=== PATIENT | male | born 2000 | race Caucasian/White ===

== ENCOUNTER 2020-04-02 11:30 | Inpatient (IN) ==
[2020-04-02] MEDS ORDERED: IOPAMIDOL 100 ML BOTTLE IV ONE (11:31)
[2020-04-02] MEDS ORDERED: ONDANSETRON 4 MG/2 ML VIAL IV ONE (11:43)
[2020-04-02] MEDS ORDERED: LORazepam 2 MG/ML VIAL IV ONE (12:00)
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
--- NOTE | 2020-04-02 12:49 | Cat Scan Report ---
CLINICAL INFORMATION: Trauma COMPARISON: None. TECHNIQUE: 0.625 mm helical slices were obtained from the mid T12 through mid S2 vertebral bodies. Following reconstruction, 2.5 mm coronal, sagittal, and axial reformations (angle to the disc spaces) were processed. Exam was reviewed at bone and soft tissue windows.The exam was performed using radiation dose optimization techniques including, but not limited to, automated exposure control, adjustment of the mA and/or kV according to patient size and use of iterative reconstruction technique. FINDINGS: Sagittal and coronal reformatted images show the lumbar spine to be anatomically aligned. There is no fracture or other osseous normality. All discs maintain normal height - no evidence of extrusion or protrusion. The central canal, lateral recess and IV foramen normal width at each level. The liver is incompletely imaged, but is moderately enlarged with severe diffuse fatty change. IMPRESSION: 1. Lumbar spine is unremarkable. 2. Moderate hepatomegaly with severe diffuse fatty infiltration compatible with diffuse hepatopathy such as alcoholic hepatitis Interpreted and Authenticated by: Blayne Macario 04/02/20
--- NOTE | 2020-04-02 12:58 | Cat Scan Report ---
CLINICAL INFORMATION: Trauma COMPARISON: None. TECHNIQUE: 2.5 mm helical slices were obtained from the skull base through the superior T2 end plate. Following reconstruction, 2.5 mm sagittal, coronal and axial reformations , with and without disc space angling, were processed. The exam was reviewed at bone and soft tissue windows. The exam was performed using radiation dose optimization techniques including, but not limited to, automated exposure control, adjustment of the mA and/or kV according to patient size and use of iterative reconstruction technique. FINDINGS: Sagittal and coronal reformatted images show the cervical spine to be anatomically aligned. There is no fracture or other osseous abnormality. The cervical cord is normal in contour and caliber without focal lesion. The soft tissues are normal. All disc levels are unremarkable - no evidence of protrusion. Central canal, lateral recesses and IV foramen are normal width at each level. IMPRESSION: Normal exam. Interpreted and Authenticated by: Blayne Macario 04/02/20
--- NOTE | 2020-04-02 13:05 | Cat Scan Report ---
CLINICAL INFORMATION: Trauma COMPARISON: None. TECHNIQUE: 2.5 mm helical slices were obtained from the mid C7 through the mid L1 vertebral bodies. Following reconstruction, 2.5 mm sagittal, coronal and axial reformations , with and without disc space angling, were processed. The exam was reviewed at bone and soft tissue windows. The exam was performed using radiation dose optimization techniques including, but not limited to, automated exposure control, adjustment of the mA and/or kV according to patient size and use of iterative reconstruction technique. FINDINGS: Mild T3, T4-T5 and moderate T6 and T7 compression fractures appreciated. These accentuate the normal kyphotic curve of the thoracic. The fractures are entirely confined to vertebral bodies - no pedicle or posterior element extension. Alignment is anatomic. There is no paraspinous edema. These may be a chronic right acute - please correlate with point tenderness over these regions.. The thoracic cord is normal in contour and caliber without focal lesion. The soft tissues are normal. All disc levels are unremarkable - no evidence of protrusion. Central canal, lateral recesses and IV foramen are normal width at each level. IMPRESSION: Mild T3-T5 and moderate T6 and T7 compression fractures of indeterminate chronicity. History of recent trauma is acknowledged. If there is acute pain in the upper and midthoracic spine, these fractures are likely acute. Since the fractures are entirely confined to the vertebral bodies, they should be considered stable and are typically treated nonsurgically. Interpreted and Authenticated by: Blayne Macario 04/02/20
[2020-04-02 13:18] LABS: Basophils # (Auto) 0.05 K/mcL (0.00-0.20); Basophils % (Auto) 0.5 % (0.0-2.0); Eosinophils # (Auto) 0.01 K/mcL (0.00-0.70); Eosinophils % (Auto) 0.1 % (0.0-7.0); Hematocrit 43.1 % (41.0-55.0); Hemoglobin 14.7 g/dL (13.5-16.5); Lymphocytes # (Auto) 0.52 K/mcL (1.50-4.80); Lymphocytes % (Auto) 5.6 % (15.0-49.0); Mean Cell Volume 99.5 fL (80.0-100.0); Mean Corpuscular HGB Conc 34.1 g/dL (31.0-36.0); Mean Platelet Volume 10.2 fL (7.4-10.4); Monocytes # (Auto) 0.58 K/mcL (0.10-0.90); Monocytes % (Auto) 6.3 % (1.0-12.0); Neutrophils % (Auto) 87.5 % (38.0-78.0); Platelet Count 164 K/mcL (140-440); RBC 4.33 M/mcL (4.50-5.90); Red Cell Distribution Width 12.1 % (11.5-14.5); WBC 9.3 K/mcL (4.5-11.0)
--- NOTE | 2020-04-02 13:33 | Cat Scan Report ---
CLINICAL INFORMATION: Trauma - fall possible seizure COMPARISON: None. TECHNIQUE: 2.5 mm helical slices were obtained in the skull base to vertex. Following reconstruction, axial reformatted images were reviewed at bone and parenchymal windows.Following injection of 50 cc of [id number]-[id number], 2.5 mm helical slices were repeated from the skull base through the vertex. The exam was performed using radiation dose optimization techniques including, but not limited to, automated exposure control, adjustment of the mA and/or kV according to patient size and use of iterative reconstruction technique. FINDINGS: The ventricles, sulci, fissures, and cisterns are normal in size and configuration. No extra-axial fluid collections are identified. The cerebrum, brainstem and cerebellum are unremarkable. There is no evidence of hemorrhage, mass effect, or edema or abnormal enhancement. Bone windows show no osseous abnormality. IMPRESSION: Normal head CT with and without contrast Interpreted and Authenticated by: Blayne Macario 04/02/20
[2020-04-02 13:34] LABS: Alcohol, Blood < 10.0 mg/dL
[2020-04-02 13:39] LABS: POC Blood Urea Nitrogen 13 mg/dL (6-20); POC CO2 18 mmol/L (22-30); POC Chloride 99 mEq/L (96-108); POC Creatinine 0.9 mg/dL (0.6-1.2); POC Glucose, Random 137 mg/dL (70-105); POC Hematocrit 47 % (41-55); POC Potassium 4.1 mEql/L (3.3-5.1); POC Sodium 134 mEq/L (133-145)
[2020-04-02] MEDS: LORazepam 2 MG/ML VIAL IV PRN ×2 (14:18→15:38)
[2020-04-02 14:30] LABS: Amphetamine Screen,Urine None detected; Barbiturate Screen,Urine None detected; Benzodiazepines Screen,Urine None detected; Cannabinoid Screen,Urine Suspect Positive; Cocaine Screen,Urine None detected; Opiate Screen,Urine None detected; Oxycodone, Urine Screen None detected; Phencyclidine Screen,Urine None detected
[2020-04-02] MEDS ORDERED: LORazepam 2 MG/ML VIAL ONE (15:43)
[2020-04-02] MEDS ORDERED: ONDANSETRON 4 MG/2 ML VIAL IV PRN (16:38)
[2020-04-02] MEDS ORDERED: POLYETHYLENE GLYCOL 3350 17 GM PACKET PO PRN (16:38)
[2020-04-02] MEDS ORDERED: POTASSIUM CHLORIDE 40 MEQ in DEXTROSE 5% IN WATER 500 ML IV PRN (16:38)
[2020-04-02] MEDS ORDERED: MAGNESIUM SULFATE 2 GM/50 ML BAG IV PRN (16:38)
[2020-04-02] MEDS ORDERED: ACETAMINOPHEN 325 MG TABLET PO PRN (16:38)
[2020-04-02] MEDS ORDERED: cloNIDine TTS 2 1 PATCH PATCH TD ONE (16:38)
[2020-04-02] MEDS ORDERED: GABAPENTIN 300 MG CAPSULE PO ONE (16:38)
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
[2020-04-02] MEDS ORDERED: 0.9 % SODIUM CHLORIDE 1,000 ML IV ONE (16:53)
[2020-04-02] MEDS ORDERED: POTASSIUM CHLORIDE 20 MEQ, MAGNESIUM SULFATE 16.24 MEQ, THIAMINE 100 MG, MVI, ADULT NO.... IV SCH ×2 (17:00→19:45)
[2020-04-02] MEDS: LACTATED RINGERS 1,000 ML IV SCH (17:18)
[2020-04-02] MEDS: SENNOSIDES/DOCUSATE SODIUM 1 TAB TABLET PO SCH (20:15)
[2020-04-02] MEDS: CYANOCOBALAMIN (VITAMIN B-12) 500 MCG TABLET PO SCH (20:16)
[2020-04-02] MEDS: levETIRAcetam 500 MG TABLET PO SCH (20:16)
[2020-04-02] MEDS: 0.9 % SODIUM CHLORIDE 10 ML SYRINGE IV SCH (20:21)
[2020-04-02] MEDS: GABAPENTIN 300 MG CAPSULE PO SCH (21:50)
[2020-04-02] MEDS: cloNIDine HCL 0.1 MG TABLET PO SCH (21:50)
[2020-04-03] MEDS: LACTATED RINGERS 1,000 ML IV SCH ×4 (02:54→17:10)
[2020-04-03] MEDS: 0.9 % SODIUM CHLORIDE 10 ML SYRINGE IV SCH ×3 (05:16→20:38)
[2020-04-03] MEDS: cloNIDine HCL 0.1 MG TABLET PO SCH ×2 (05:16→14:47)
[2020-04-03] MEDS: GABAPENTIN 300 MG CAPSULE PO SCH ×2 (05:16→14:47)
[2020-04-03 06:26] LABS: Basophils # (Auto) 0.03 K/mcL (0.00-0.20); Basophils % (Auto) 0.4 % (0.0-2.0); Eosinophils # (Auto) 0.01 K/mcL (0.00-0.70); Eosinophils % (Auto) 0.1 % (0.0-7.0); Hemoglobin 13.1 g/dL (13.5-16.5); Lymphocytes % (Auto) 10.9 % (15.0-49.0); Mean Cell Volume 100.3 fL (80.0-100.0); Mean Corpuscular HGB Conc 34.5 g/dL (31.0-36.0); Mean Platelet Volume 10.5 fL (7.4-10.4); Monocytes # (Auto) 1.05 K/mcL (0.10-0.90); Monocytes % (Auto) 12.7 % (1.0-12.0); Neutrophils % (Auto) 75.9 % (38.0-78.0); Platelet Count 127 K/mcL (140-440); RBC 3.79 M/mcL (4.50-5.90); Red Cell Distribution Width 12.2 % (11.5-14.5); WBC 8.3 K/mcL (4.5-11.0)
[2020-04-03 06:55] LABS: ALT/SGPT 82 U/L (<40); AST/SGOT 154 U/L (<40); Albumin 3.9 gm/dL (3.2-5.2); Albumin/Globulin Ratio 1.7 (1.0-2.3); Alkaline Phosphatase 45 U/L (39-117); Bilirubin,Direct 0.2 mg/dL (<0.3); Bilirubin,Total 0.8 mg/dL (0.1-1.0); Blood Urea Nitrogen 10 mg/dL (6-20); Calcium 8.5 mg/dL (8.6-10.4); Carbon Dioxide 22 mmol/L (22-30); Chloride 97 mmol/L (96-108); Globulin 2.3 gm/dL (2.2-3.7); Glomerular Filtration Rate 121; Glucose 71 mg/dL (70-105); Lactate Dehydrogenase 369 U/L (135-225); Phosphorous 1.5 mg/dL (2.5-4.5); Triglycerides 134 mg/dL (<150); Uric Acid 10.9 mg/dL (2.5-8.0)
[2020-04-03] MEDS: MULTIVIT,THER IRON,CA,FA & MIN 1 TABLET PO SCH (07:45)
[2020-04-03] MEDS: ONDANSETRON 4 MG ODT TABLET SL PRN ×2 (07:45→12:53)
[2020-04-03] MEDS: FOLIC ACID 1 MG TABLET PO SCH (07:45)
[2020-04-03] MEDS: CYANOCOBALAMIN (VITAMIN B-12) 500 MCG TABLET PO SCH ×2 (07:45→20:10)
[2020-04-03] MEDS: THIAMINE 100 MG in 0.9 % SODIUM CHLORIDE 50 ML IV SCH (07:45)
[2020-04-03] MEDS: levETIRAcetam 500 MG TABLET PO SCH ×2 (07:52→20:10)
[2020-04-03] MEDS ORDERED: NEUTRA PHOS 1 PACKET PO SCH (08:09)
[2020-04-03] MEDS: NEUTRA PHOS 1 PACKET PO SCH ×3 (08:43→20:10)
--- NOTE | 2020-04-03 08:45 | Internal Med Progress Note ---
SUBJECTIVE Subjective Patient information: Note initiated : 04/03/20 at 8:42 am Service Date, if different from initiated Date: [] Patient: Avery Loyola 19 y/o M admitted on 04/02/20 for seizure. Interval history: Mr. Loyola is a 19 year old M with a history of asthma/alcoholism/seizures in the past who presents to the ER by law enforcement for medical clearance for incarceration following a seizure episode at the [facility] where he sustained injury secondary to fall from seizure. On arrival to the ER he was started on Ativan and initial ork-up was unremarkable including neuroimaging. Patient with a demonstrating significant psychomotor agitation /elevated CIWA scores suspicious for alcohol withdrawal. Hospitalist service was consulted along with neurology at [facility] who recommended initiation of Keppra/admission and further management of alcohol withdrawal. No indication for acute transfer to tertiary center. Please refer to the emergency physician note regarding discussion with neurology At the time of my evaluation patient is confused/fidgety and only able to respond when prompted. He frequently slurs. Denies hallucinations but noticeable tachycardia tachypnea and diaphoresis. No family members present. Most of the history is obtained from review of medical records/ER physician and patient was able to participate in minimal review of systems. He denies chest pain, diarrhea, dysuria endorses minimal shortness of breath 04/03-patient doing a lot better. No overnight events. No additional concerns per nursing staff. Intermittent agitation but no hallucinations. Tachycardia improving. Was able to ambulate with physical therapy however remains unsteady. Tolerating diet. Sodium 132, phosphorus 1.5, LFTs downtrending. No overnight seizure episodes. Continuing Keppra. Constitutional Vitals: Vital Signs Temp Pulse Resp BP Pulse Ox 100.5 F H 88 21 128/78 96 04/03/20 03:49 04/03/20 03:49 04/03/20 05:26 04/03/20 05:26 04/03/20 05:26 Period Temp Pulse Resp BP Sys/Shaver Pulse Ox Last 24 Hr 98.0 F-100.9 F 88-128 13-25 119-152/59-102 92-100 Intake and Output 04/02/20 04/03/20 04/03/20 21:59 05:59 13:59 Intake Total 1443 2163 557 Output Total 600 1225 725 Balance 843 938 -168 Weight 61.779 kg alert and oriented Tachycardia improving Feels minimally short of breath No anxiety Intake & Output: Intake & Output 04/02/20 04/03/20 04/03/20 21:59 05:59 13:59 Intake Total 1443 2163 557 Output Total 600 1225 725 Balance 843 938 -168 Weight 61.779 kg Intake: IV 1443 998 557 Sodium Chloride 0.9% 1,000 ml @ 1000 Wide Open IV BOLUS ONE Rx#: [id number] Lactated Ringers 1,000 ml @ 150 443 0 557 mls/hr IV .Q6H40M [facility] Rx#: [id number] Potassium Chloride 20 Meq 998 Magnesium Sulfate 16.24 Meq Vitamin B1 100 mg Infuvite Adult 10 ml In Sodium Chloride 0.9% 1,000 ml @ 150 mls/hr IV . Q6H50M [facility] Rx#:[id number] Oral 1165 Output: Void Amount 600 625 725 Urine/Stool Mix 600 Other: Urine Appearance Clear Clear Clear Urine Color Dark Yellow Dark Yellow Pale Urine Odor Strong Strong Normal Stool Size Small Stool Color Brown Stool Consistency Formed OBJ DATA Labs CBC & Chem 7: 04/03/20 04:28 04/03/20 04:28 Labs: Abnormal Lab Results 04/03/20 04/03/20 04/02/20 04:28 04:28 13:39 RBC 3.79 L Hgb 13.1 L Hct 38.0 L MCV 100.3 H MCH 34.6 H Plt Count 127 L MPV 10.5 H Neut % (Auto) Lymph % (Auto) 10.9 L [place] % (Auto) 12.7 H Lymph # (Auto) 0.90 L [place] # (Auto) 1.05 H Absolute Neutrophils Sodium 132 L POC Total CO2 POC Glucose Uric Acid 10.9 H Calcium 8.5 L POC WB Ioniz Calcium Phosphorus 1.5 L GGT 187 H AST 154 H ALT 82 H Lactate Dehydrogenase 369 H U Marijuana (THC) Screen Suspect positive A Ethyl Alcohol 04/02/20 04/02/20 04/02/20 12:40 12:40 12:40 RBC 4.33 L Hgb Hct MCV MCH Plt Count MPV Neut % (Auto) 87.5 H Lymph % (Auto) 5.6 L [place] % (Auto) Lymph # (Auto) 0.52 L [place] # (Auto) Absolute Neutrophils 8.10 H Sodium POC Total CO2 18 L POC Glucose 137 H Uric Acid Calcium POC WB Ioniz Calcium 1.10 L Phosphorus GGT AST ALT Lactate Dehydrogenase U Marijuana (THC) Screen Ethyl Alcohol 0.010 H Meds: Medications Acetaminophen (Tylenol) 650 mg PO Q4-6HP PRN; Protocol PRN Reason: Per Pain Protocol/Fever > 101 Albuterol/Ipratropium (Duoneb) 3 ml NEB Q4HP PRN PRN Reason: Shortness Of Breath Budesonide (Pulmicort) 0.5 mg NEB Q12 [facility] Clonidine HCl (Catapres) 0.1 mg PO Q8 [facility] Stop: 04/03/20 14:01 Last Admin: 04/03/20 05:16 Dose: 0.1 mg Documented by: Cyanocobalamin (Vitamin B-12) 1,000 mcg PO BID [facility] Stop: 04/07/20 09:01 Last Admin: 04/03/20 07:45 Dose: 1,000 mcg Documented by: Folic Acid (Folic Acid) 1 mg PO DAILY [facility] Last Admin: 04/03/20 07:45 Dose: 1 mg Documented by: Gabapentin (Neurontin) 600 mg PO Q8H [facility] Stop: 04/03/20 14:01 Last Admin: 04/03/20 05:16 Dose: 600 mg Documented by: Gabapentin (Neurontin) 400 mg PO Q8H [facility] Stop: 04/04/20 14:01 Gabapentin (Neurontin) 300 mg PO Q8H [facility] Stop: 04/05/20 14:01 Potassium Chloride 40 meq/ (Dextrose) 520 mls @ 130 mls/hr IV UD PRN PRN Reason: K+ = or < 3.5 Acetaminophen (Ofirmev) 650 mg in 65 mls @ 130 mls/hr IV Q6HP PRN; Protocol PRN Reason: Per Pain Protocol/Fever > 101 Magnesium Sulfate (Magnesium Sulfate) 2 gm in 50 mls @ 50 mls/hr IV UD PRN PRN Reason: MG = or < 1.7 Thiamine HCl 100 mg/ Sodium (Chloride) 51 mls @ 50 mls/hr IV DAILY [facility] Stop: 04/05/20 10:02 Last Admin: 04/03/20 07:45 Dose: 50 mls/hr Documented by: Lactated Ringer's (Lactated Ringers) 1,000 mls @ 150 mls/hr IV .Q6H40M [facility] Stop: 04/03/20 12:59 Last Admin: 04/03/20 07:33 Dose: 150 mls/hr Documented by: Iron Carb/Multivit/Plant Associate/Folic Acid (Multivitamin W/Minerals) 1 tab PO DAILY [facility] Last Admin: 04/03/20 07:45 Dose: 1 tab Documented by: Levetiracetam (Keppra) 500 mg PO BID [facility] Last Admin: 04/03/20 07:52 Dose: 500 mg Documented by: Ondansetron HCl (Zofran Odt) 4 mg SL Q4-6HP PRN; Protocol PRN Reason: Nausea And Vomiting Last Admin: 04/03/20 07:45 Dose: 4 mg Documented by: Ondansetron HCl (Zofran) 4 mg IV Q4-6HP PRN; Protocol PRN Reason: Nausea And Vomiting Polyethylene Glycol (Miralax) 17 gm PO DAILYP PRN PRN Reason: Constipation Potassium/Phosphorus/Sodium (Neutra Phos) 2 packet PO TID@0900,1500,2100 [facility] Stop: 04/03/20 21:01 Senna/Docusate Sodium (Senna Plus Tablet) 1 tab PO HS [facility] Last Admin: 04/02/20 20:15 Dose: 1 tab Documented by: Sodium Chloride (Saline Flush) 10 ml IV Q8 [facility] Last Admin: 04/03/20 05:16 Dose: Not Given Documented by: A/P Narrative A/P Narrative: * Severe alcohol withdrawal-with DTs/seizures. On alcohol withdrawal protocol ..Tay et al. * Generalized tonic-clonic seizures-high probably alcohol withdrawal. Continue multivitamin/antiepileptic/alcohol withdrawal management on clonidine/gabapentin. On Keppra per [facility] neurology recommendations. * History of substance abuse-urine screen positive for marijuana * History of asthma-continue bronchodilators * Full code Plan * Continue ICU care/seizure watch * Seizure management on Keppra/seizure watch * Alcohol withdrawal management * Nutrition support Time Spent With Patient Time: Total time spent is greater than 50% in coordination of care (as documented) at patient's floor/unit and/or counseling patient: QUALITY VTE Deep Vein Thrombosis/Pulmonary Embolism Present on Admission: No
[2020-04-03] MEDS: BUDESONIDE 0.5 MG/2 ML AMPUL.NEB NEB SCH ×2 (08:59→21:00)
[2020-04-03] MEDS: IPRATROPIUM/ALBUTEROL 3 ML AMPUL.NEB NEB PRN ×2 (09:00→21:00)
[2020-04-03] MEDS: METHOCARBAMOL 750 MG TABLET PO PRN ×2 (10:22→20:10)
[2020-04-03] MEDS: ACETAMINOPHEN 650 MG/65 ML BAG IV PRN (12:44)
[2020-04-03] MEDS: SENNOSIDES/DOCUSATE SODIUM 1 TAB TABLET PO SCH (20:37)
[2020-04-03] MEDS: GABAPENTIN 400 MG CAPSULE PO SCH (22:18)
[2020-04-04] MEDS: 0.9 % SODIUM CHLORIDE 10 ML SYRINGE IV SCH ×4 (06:14→21:36)
[2020-04-04] MEDS: GABAPENTIN 400 MG CAPSULE PO SCH (06:14)
--- NOTE | 2020-04-04 06:38 | XRay Report ---
CLINICAL INFORMATION: History of seizure COMPARISON: 03/03/2019 TECHNIQUE: Portable FINDINGS: The heart size, mediastinum and pulmonary vessels are unremarkable. The lungs are clear. There are no effusions. The bones and soft tissues are within normal limits. IMPRESSION: Normal chest. Interpreted and Authenticated by: Blayne Macario 04/04/20
[2020-04-04 06:56] LABS: Basophils # (Auto) 0.03 K/mcL (0.00-0.20); Basophils % (Auto) 0.5 % (0.0-2.0); Eosinophils # (Auto) 0.03 K/mcL (0.00-0.70); Eosinophils % (Auto) 0.5 % (0.0-7.0); Hematocrit 39.5 % (41.0-55.0); Hemoglobin 13.6 g/dL (13.5-16.5); Lymphocytes # (Auto) 1.18 K/mcL (1.50-4.80); Lymphocytes % (Auto) 19.5 % (15.0-49.0); Mean Corpuscular HGB Conc 34.4 g/dL (31.0-36.0); Mean Platelet Volume 10.5 fL (7.4-10.4); Monocytes # (Auto) 0.72 K/mcL (0.10-0.90); Monocytes % (Auto) 11.9 % (1.0-12.0); Neutrophils % (Auto) 67.6 % (38.0-78.0); Platelet Count 108 K/mcL (140-440); RBC 3.99 M/mcL (4.50-5.90); Red Cell Distribution Width 11.9 % (11.5-14.5); WBC 6.1 K/mcL (4.5-11.0)
[2020-04-04] MEDS: BUDESONIDE 0.5 MG/2 ML AMPUL.NEB NEB SCH ×2 (07:18→20:59)
[2020-04-04] MEDS: IPRATROPIUM/ALBUTEROL 3 ML AMPUL.NEB NEB PRN ×2 (07:18→20:15)
[2020-04-04 07:24] LABS: ALT/SGPT 77 U/L (<40); AST/SGOT 123 U/L (<40); Albumin/Globulin Ratio 1.5 (1.0-2.3); Alkaline Phosphatase 50 U/L (39-117); Bilirubin,Direct < 0.2 mg/dL (<0.3); Bilirubin,Total 0.6 mg/dL (0.1-1.0); Blood Urea Nitrogen 5 mg/dL (6-20); Carbon Dioxide 29 mmol/L (22-30); Chloride 97 mmol/L (96-108); Globulin 2.6 gm/dL (2.2-3.7); Glomerular Filtration Rate 134; Glucose 91 mg/dL (70-105); Lactate Dehydrogenase 408 U/L (135-225); Phosphorous 3.1 mg/dL (2.5-4.5); Triglycerides 76 mg/dL (<150); Uric Acid 5.3 mg/dL (2.5-8.0)
[2020-04-04] MEDS: ONDANSETRON 4 MG ODT TABLET SL PRN ×3 (07:51→17:40)
[2020-04-04] MEDS: MULTIVIT,THER IRON,CA,FA & MIN 1 TABLET PO SCH (07:51)
[2020-04-04] MEDS: FOLIC ACID 1 MG TABLET PO SCH (07:52)
[2020-04-04] MEDS: CYANOCOBALAMIN (VITAMIN B-12) 500 MCG TABLET PO SCH ×2 (07:52→21:33)
[2020-04-04] MEDS: ACETAMINOPHEN 650 MG/65 ML BAG IV PRN (07:53)
[2020-04-04] MEDS: levETIRAcetam 500 MG TABLET PO SCH ×2 (08:01→21:34)
[2020-04-04] MEDS: METHOCARBAMOL 750 MG TABLET PO PRN (08:01)
[2020-04-04] MEDS ORDERED: HYDROcodone/APAP 5/325MG TABLET PO PRN ×2 (08:39→12:36)
[2020-04-04] MEDS ORDERED: traZODone HCL 50 MG TABLET PO PRN ×2 (08:39→12:36)
[2020-04-04] MEDS: THIAMINE 100 MG in 0.9 % SODIUM CHLORIDE 50 ML IV SCH (08:47)
--- NOTE | 2020-04-04 09:12 | XRay Report ---
CLINICAL INFORMATION: Trauma - fall COMPARISON: None. FINDINGS: The acromioclavicular and glenohumeral joint spaces are normal in width and alignment, without arthritic change. There is no fracture or other osseous abnormality. Soft tissues are unremarkable. IMPRESSION: Normal exam. Interpreted and Authenticated by: Blayne Macario 04/04/20
--- NOTE | 2020-04-04 09:16 | Internal Med Progress Note ---
SUBJECTIVE Subjective Patient information: Note initiated : 04/04/20 at 9:14 am Service Date, if different from initiated Date: [] Patient: Avery Loyola a 19 y/o M admitted on 04/02/20 for seizure. Chief Complaint: [] Interval history: Mr. Loyola is a 19 year old M with a history of asthma/alcoholism/seizures in the past who presents to the ER by law enforcement for medical clearance for incarceration [facility] secondary to fall from seizure. On arrival to the ER he was started on Ativan and initial ork-up was unremarkable including neuroimaging. Patient with a demonstrating significant psychomotor agitation/elevated CIWA scores suspicious for alcohol withdrawal. Hospitalist service was consulted along with neurology at [place] who recommended initiation of Keppra/admission and further management of alcohol withdrawal. No indication for acute transfer to tertiary center. Please refer to the emergency physician note regarding discussion with neurology At the time of my evaluation patient is confused/fidgety and only able to respond when prompted. He frequently slurs. Denies hallucinations but noticeable tachycardia tachypnea and diaphoresis. No family members present. M ost of the history is obtained from review of medical records/ER physician and patient was able to participate in minimal review of systems. He denies chest pain, diarrhea, dysuria endorses minimal shortness of breath 04/03-patient doing a lot better. No overnight events. No additional concerns p er nursing staff. Intermittent agitation but no hallucinations. Tachycardia improving. Was able to ambulate with physical therapy however remains unsteady. Tolerating diet. Sodium 132, phosphorus 1.5, LFTs downtrending. No overnight seizure episodes. Continuing Keppra. 04/04-patient doing a lot better. However remains fidgety. Hemodynamic stabilizing. Tachycardia tachypnea improving. No hallucinosis. No overnight events or concerns per staff. Tolerating diet. No family was at bedside. Constitutional Vitals: vital Signs Temp Pulse Resp BP Pulse Ox 99.5 F H 86 19 146/100 97 04/04/20 08:03 04/04/20 07:18 04/04/20 08:00 04/04/20 08:03 04/04/20 08:00 Period Temp Pulse Resp BP Sys/Shaver Pulse Ox Last 24 Hr 97.5 F-100.6 F 60-96 15-22 124-152/71-100 91-100 Intake and Output 04/03/20 04/04/20 04/04/20 21:59 05:59 13:59 Intake Total 1000 2665 1085 Output Total 1600 2725 950 Balance -600 -60 135 Weight 61.416 kg alert but very anxious and fidgety Nonlabored breathing No telemetry events Intake & Output: Intake & Output 04/03/20 04/04/20 04/04/20 21:59 05:59 13:59 Intake Total 1000 2665 1085 Output Total 1600 2725 950 Balance -600 -60 135 Weight 61.416 kg Intake: IV 1000 1000 65 Lactated Ringers 1,000 ml @ 150 1000 1000 mls/hr IV .Q6H40M [facility] Rx#: [id number] Oral 1665 1020 Output: Void Amount 1600 2725 950 Other: Meal Breakfast Percent of Meal Consumed 100% Urine Appearance Clear Clear Clear Urine Color Bright Yellow Pale Dark Yellow Urine Odor Normal Normal Stool Size Smear Stool Color Brown Brown Stool Consistency Loose Loose # Bowel Movements 1 OBJ DATA Labs CBC & Chem 7: 04/04/20 05:07 04/04/20 05:07 Labs: Abnormal Lab Results 04/04/20 04/04/20 04/03/20 05:07 05:07 04:28 RBC 3.99 L Hgb Hct 39.5 L MCV MCH 34.1 H Plt Count 108 L MPV 10.5 H Neut % (Auto) Lymph % (Auto) [place] % (Auto) Lymph # (Auto) 1.18 L [place] # (Auto) Absolute Neutrophils Sodium 132 L Potassium 3.1 L POC Total CO2 BUN 5 L POC Glucose Uric Acid 10.9 H Calcium 8.5 L POC WB Ioniz Calcium Phosphorus 1.5 L Magnesium 1.5 L GGT 188 H 187 H AST 123 H 154 H ALT 77 H 82 H Lactate Dehydrogenase 408 H 369 H U Marijuana (THC) Screen Ethyl Alcohol 04/03/20 04/02/20 04/02/20 04:28 13:39 12:40 RBC 3.79 L Hgb 13.1 L Hct 38.0 L MCV 100.3 H MCH 34.6 H Plt Count 127 L MPV 10.5 H Neut % (Auto) Lymph % (Auto) 10.9 L [place] % (Auto) 12.7 H Lymph # (Auto) 0.90 L [place] # (Auto) 1.05 H Absolute Neutrophils Sodium Potassium POC Total CO2 BUN POC Glucose Uric Acid Calcium POC WB Ioniz Calcium Phosphorus Magnesium GGT AST ALT Lactate Dehydrogenase U Marijuana (THC) Screen Suspect positive A Ethyl Alcohol 0.010 H 04/02/20 04/02/20 12:40 12:40 RBC 4.33 L Hgb Hct MCV MCH Plt Count MPV Neut % (Auto) 87.5 H Lymph % (Auto) 5.6 L [place] % (Auto) Lymph # (Auto) 0.52 L [place] # (Auto) Absolute Neutrophils 8.10 H Sodium Potassium POC Total CO2 18 L BUN POC Glucose 137 H Uric Acid Calcium POC WB Ioniz Calcium 1.10 L Phosphorus Magnesium GGT AST ALT Lactate Dehydrogenase U Marijuana (THC) Screen Ethyl Alcohol Meds: Medications Acetaminophen (Tylenol) 650 mg PO Q4-6HP PRN; Protocol PRN Reason: Per Pain Protocol/Fever > 101 Last Admin: 04/04/20 02:03 Dose: 650 mg Documented by: Hydrocodone Bitart/Acetaminophen (Drain 5/325mg) 0.5 tab PO Q4HP PRN; Protocol PRN Reason: Per Pain Protocol Albuterol/Ipratropium (Duoneb) 3 ml NEB Q4HP PRN PRN Reason: Shortness Of Breath Last Admin: 04/04/20 07:18 Dose: 3 ml Documented by: Budesonide (Pulmicort) 0.5 mg NEB Q12 [facility] Last Admin: 04/04/20 07:18 Dose: 0.5 mg Documented by: Cyanocobalamin (Vitamin B-12) 1,000 mcg PO BID [facility] Stop: 04/07/20 09:01 Last Admin: 04/04/20 07:52 Dose: 1,000 mcg Documented by: Folic Acid (Folic Acid) 1 mg PO DAILY [facility] Last Admin: 04/04/20 07:52 Dose: 1 mg Documented by: Gabapentin (Neurontin) 400 mg PO Q8H [facility] Stop: 04/04/20 14:01 Last Admin: 04/04/20 06:14 Dose: 400 mg Documented by: Gabapentin (Neurontin) 300 mg PO Q8H [facility] Stop: 04/05/20 14:01 Potassium Chloride 40 meq/ (Dextrose) 520 mls @ 130 mls/hr IV UD PRN PRN Reason: K+ = or < 3.5 Last Admin: 04/04/20 08:47 Dose: 130 mls/hr Documented by: Acetaminophen (Ofirmev) 650 mg in 65 mls @ 130 mls/hr IV Q6HP PRN; Protocol PRN Reason: Per Pain Protocol/Fever > 101 Last Infusion: 04/04/20 08:30 Dose: Infused Documented by: Magnesium Sulfate (Magnesium Sulfate) 2 gm in 50 mls @ 50 mls/hr IV UD PRN PRN Reason: MG = or < 1.7 Last Admin: 04/04/20 08:47 Dose: 50 mls/hr Documented by: Thiamine HCl 100 mg/ Sodium (Chloride) 51 mls @ 50 mls/hr IV DAILY [facility] Stop: 04/05/20 10:02 Last Admin: 04/04/20 08:47 Dose: 50 mls/hr Documented by: Iron Carb/Multivit/[place]/Folic Acid (Multivitamin W/Minerals) 1 tab PO DAILY [facility] Last Admin: 04/04/20 07:51 Dose: 1 tab Documented by: Levetiracetam (Keppra) 500 mg PO BID [facility] Last Admin: 04/04/20 08:01 Dose: 500 mg Documented by: Methocarbamol (Robaxin) 750 mg PO TIDP PRN PRN Reason: Muscle Spasm Last Admin: 04/04/20 08:01 Dose: 750 mg Documented by: Ondansetron HCl (Zofran Odt) 4 mg SL Q4-6HP PRN; Protocol PRN Reason: Nausea And Vomiting Last Admin: 04/04/20 07:51 Dose: 4 mg Documented by: Ondansetron HCl (Zofran) 4 mg IV Q4-6HP PRN; Protocol PRN Reason: Nausea And Vomiting Polyethylene Glycol (Miralax) 17 gm PO DAILYP PRN PRN Reason: Constipation Senna/Docusate Sodium (Senna Plus Tablet) 1 tab PO HS [facility] Last Admin: 04/03/20 20:37 Dose: Not Given Documented by: Sodium Chloride (Saline Flush) 10 ml IV Q8 [facility] Last Admin: 04/04/20 06:14 Dose: 10 ml Documented by: Trazodone HCl (Desyrel) 50 mg PO HSP PRN PRN Reason: Insomnia A/P Narrative A/P Narrative: * Severe alcohol withdrawal-with DTs/seizures. Clinically improved on management per protocol * Generalized tonic-clonic seizures-no further seizure episodes. Likely underlying seizure disorder. Currently on Keppra * History of substance abuse-urine screen positive for marijuana. Counseled for cessation * History of asthma-continue bronchodilators * Full code Plan * Continue watch bed/alcohol withdrawal monitoring and protocol * Continue Keppra * Nutrition support * Possible discharge with outpatient alcohol detox resources, coordination per case management Time Spent With Patient Time: Total time spent is greater than 50% in coordination of care (as documented) at patient's floor/unit and/or counseling patient: QUALITY VTE Deep Vein Thrombosis/Pulmonary Embolism Present on Admission: No
[2020-04-04] MEDS ORDERED: POLYETHYLENE GLYCOL 3350 17 GM PACKET PO PRN (12:36)
[2020-04-04] MEDS ORDERED: POTASSIUM CHLORIDE 40 MEQ in DEXTROSE 5% IN WATER 500 ML IV PRN (12:36)
[2020-04-04] MEDS ORDERED: ACETAMINOPHEN 325 MG TABLET PO PRN (12:36)
[2020-04-04] MEDS ORDERED: MAGNESIUM SULFATE 2 GM/50 ML BAG IV PRN (12:36)
[2020-04-04] MEDS ORDERED: ACETAMINOPHEN 650 MG/65 ML BAG IV PRN (12:36)
[2020-04-04] MEDS ORDERED: METHOCARBAMOL 750 MG TABLET PO PRN (12:36)
[2020-04-04] MEDS ORDERED: ONDANSETRON 4 MG/2 ML VIAL IV PRN (12:36)
[2020-04-04] MEDS ORDERED: GABAPENTIN 400 MG CAPSULE PO SCH (14:00)
[2020-04-04] MEDS ORDERED: SENNOSIDES/DOCUSATE SODIUM 1 TAB TABLET PO SCH (21:00)
[2020-04-04] MEDS: GABAPENTIN 300 MG CAPSULE PO SCH (21:34)
[2020-04-04] MEDS ORDERED: GABAPENTIN 300 MG CAPSULE PO SCH (22:00)
[2020-04-05] MEDS: 0.9 % SODIUM CHLORIDE 10 ML SYRINGE IV SCH (05:51)
[2020-04-05] MEDS: GABAPENTIN 300 MG CAPSULE PO SCH (05:51)
[2020-04-05] MEDS: IPRATROPIUM/ALBUTEROL 3 ML AMPUL.NEB NEB PRN (06:25)
[2020-04-05 08:28] LABS: Basophils # (Auto) 0.06 K/mcL (0.00-0.20); Basophils % (Auto) 0.7 % (0.0-2.0); Eosinophils # (Auto) 0.13 K/mcL (0.00-0.70); Eosinophils % (Auto) 1.5 % (0.0-7.0); Hematocrit 46.2 % (41.0-55.0); Hemoglobin 15.7 g/dL (13.5-16.5); Lymphocytes # (Auto) 1.86 K/mcL (1.50-4.80); Lymphocytes % (Auto) 22.1 % (15.0-49.0); Mean Cell Volume 99.8 fL (80.0-100.0); Mean Platelet Volume 10.7 fL (7.4-10.4); Monocytes # (Auto) 1.35 K/mcL (0.10-0.90); Monocytes % (Auto) 16.1 % (1.0-12.0); Neutrophils % (Auto) 59.6 % (38.0-78.0); Platelet Count 120 K/mcL (140-440); RBC 4.63 M/mcL (4.50-5.90); WBC 8.4 K/mcL (4.5-11.0)
--- NOTE | 2020-04-05 08:39 | Discharge Summary ---
Discharge Provider Provider Patient information: Note initiated : 04/05/20 at 8:38 am Service Date, if different from initiated Date: [] Patient: Avery Loyola a 19 y/o M admitted on 04/02/20 for seizure. Discharge diagnosis Severe alcohol withdrawal-with DTs/seizures. Clinically improved on management per [place] protocol. Generalized tonic-clonic seizures-no further seizure episodes. Likely underlying seizure disorder. Currently on Keppra as per neurology recomm endations History of substance abuse-urine screen positive for marijuana. Counseled for cessation. Outpatient drug rehab resources history of asthma-continue bronchodilators Brief hospital course Mr. Loyola is a 19 year old M with a history of asthma/alcoholism/seizures in the past who presents to the ER by law enforcement for medical clearance for incarceration following a [facility] episode at the [facility] where he sustained injury secondary to fall from seizure. On arrival to the ER he was started on Ativan and initial ork-up was unremarkable including neuroimaging. Patient with a demonstrating significant psychomotor agitation/elevated CIWA scores suspicious for alcohol withdrawal. Hospitalist service was consulted along with neurology at [place] who recommended initiation of Keppra/admission and further management of alcohol withdrawal. No indication for acute transfer to tertiary center. Please refer to the emergency physician note regarding discussion with neurology At the time of my evaluation patient is confused/fidgety and only able to respond when prompted. He frequently slurs. Denies hallucinations but noticeable tachycardia tachypnea and diaphoresis. No family members present. Most of the history is obtained from review of medical records/ER physician and patient was able to participate in minimal review of systems. He denies chest p ain, diarrhea, dysuria endorses minimal shortness of breath 04/03-patient doing a lot better. No overnight events. No additional concerns per nursing staff. Intermittent agitation but no hallucinations. Tachycardia improving. Was able to ambulate with physical therapy however remains unsteady. Tolerating diet. Sodium 132, phosphorus 1.5, LFTs downtrending. No overnight seizure episodes. Continuing Keppra. 04/04-patient doing a lot better. However remains fidgety. Hemodynamic stabilizing. Tachycardia tachypnea improving. No hallucinosis. No overnight events or concerns per staff. Tolerating diet. No family was at bedside. 04/05-patient doing well. No overnight events. Discharging with advised to continue outpatient rehab and refrain from drug and alcohol use. Feels a lot better. No overnight events. Date of admission: 04/02/20 16:45 Discharge date: 04/05/20 Primary care physician: DAVID Perez Consults: 04/02/20 Consult to Physician [CONS] Stat Comment: Consulting Provider: Jeremy Marley Reason For Exam: Physician to Consult Discharge Meds Discharge Medications Home Medications albuterol sulfate 1 unit INHALATION DAILY 04/01/20 [History Confirmed 04/02/20 Last Taken 1 Day Ago ~04/01/20] levetiracetam 500 mg PO BID #60 tab 04/05/20 [Rx Last Taken Unknown] COURSE Hospital Course Hospital course: . Discharge diagnosis: . Time Spent with Patient Time attestation: Total time spent providing and/or coordinating discharge services: EXAM Constitutional Vitals: Temp Pulse Resp BP Pulse Ox 98.0 F 84 18 130/90 99 04/05/20 08:00 04/05/20 08:00 04/05/20 08:00 04/05/20 08:00 04/05/20 08:00 Discharge Data Data Completed and Pending Labs on day of discharge: Labs from last 24 hours 04/05/20 04/05/20 05:09 05:09 WBC 8.4 RBC 4.63 Hgb 15.7 Hct 46.2 MCV 99.8 MCH 33.9 MCHC 34.0 RDW 12.0 Plt Count 120 L MPV 10.7 H Neut % (Auto) 59.6 Lymph % (Auto) 22.1 [place] % (Auto) 16.1 H Eos % (Auto) 1.5 Baso % (Auto) 0.7 Lymph # (Auto) 1.86 [place] # (Auto) 1.35 H Eos # (Auto) 0.13 Baso # (Auto) 0.06 Absolute Neutrophils 5.00 Sodium Pending Potassium Pending Chloride Pending Carbon Dioxide Pending Anion Gap Pending BUN Pending Creatinine Pending GFR Calculation Pending Glucose Pending Uric Acid Pending Calcium Pending Phosphorus Pending Magnesium Pending Total Bilirubin Pending Direct Bilirubin Pending GGT Pending AST Pending ALT Pending Alkaline Phosphatase Pending Lactate Dehydrogenase Pending Total Protein Pending Albumin Pending Globulin Pending Albumin/Globulin Ratio Pending Triglycerides Pending Discharge Plan Patient/Caregiver Discharge Instructions Activity: increase activity as tolerated Diet: Regular Diet Instructions: How to Stop Smoking (GEN), Cigarette Smoking and Your Health (GEN), Benzodiazepine Abuse (GEN), Abuse of Alcohol (GEN), Alcohol Withdrawal (GEN), Tachycardia (GEN) Prescriptions: New levetiracetam 500 mg Tablet 500 mg PO BID Qty: 60 RF: 0 No Action albuterol sulfate 1 unit inhalation DAILY RF: 0 Follow Up Plan Follow up with: Tristan Márquez ARNP [Primary Care Provider] - Patient Disposition: Home, Self-Care Rehab Potential: Fair I certify that the patient requires SNF services: No Overall status at discharge: patient is progressing back to baseline Discharge Orders: Discharge Order (Routine); Ordered 04/05/20 Ordered By: Jeremy JETER VTE Deep Vein Thrombosis/Pulmonary Embolism Present on Admission: No
[2020-04-05] MEDS: BUDESONIDE 0.5 MG/2 ML AMPUL.NEB NEB SCH (08:48)
[2020-04-05] MEDS: levETIRAcetam 500 MG TABLET PO SCH (08:54)
[2020-04-05] MEDS: CYANOCOBALAMIN (VITAMIN B-12) 500 MCG TABLET PO SCH (08:54)
[2020-04-05] MEDS ORDERED: MULTIVIT,THER IRON,CA,FA & MIN 1 TABLET PO SCH (09:00)
[2020-04-05] MEDS ORDERED: FOLIC ACID 1 MG TABLET PO SCH (09:00)
[2020-04-05] MEDS ORDERED: THIAMINE 100 MG in 0.9 % SODIUM CHLORIDE 50 ML IV SCH (09:00)
[2020-04-05 09:17] LABS: ALT/SGPT 89 U/L (<40); AST/SGOT 123 U/L (<40); Albumin 4.7 gm/dL (3.2-5.2); Albumin/Globulin Ratio 1.3 (1.0-2.3); Alkaline Phosphatase 61 U/L (39-117); Bilirubin,Direct < 0.2 mg/dL (<0.3); Bilirubin,Total 0.5 mg/dL (0.1-1.0); Blood Urea Nitrogen 5 mg/dL (6-20); Carbon Dioxide 24 mmol/L (22-30); Chloride 95 mmol/L (96-108); Globulin 3.5 gm/dL (2.2-3.7); Glomerular Filtration Rate 134; Glucose 88 mg/dL (70-105); Lactate Dehydrogenase 521 U/L (135-225); Phosphorous 2.9 mg/dL (2.5-4.5); Triglycerides 92 mg/dL (<150); Uric Acid 4.3 mg/dL (2.5-8.0)
== END 2020-04-05 09:35 | disposition home or self-care (01) | DRG 897 ==
LOC: ED 11:30 → ICU 16:45 → MEDSUR 04-04 17:43
PROVIDERS: ADMIT Internal Medicine; ATTEND Internal Medicine